=== PATIENT | male | born 1980 | race African-American/Black ===

== ENCOUNTER 2016-07-13 02:20 | Emergency (ER) | payer OTHER ==
[~2016-07-13] VITALS: Ht 185.4 cm; Wt 73.8 kg
[~2016-07-13 02:20] MED LIST: AFRIN,GENASAL D15 ML BOTH NARES; AUGMENTIN875 MG PO; HYCODAN SYRUP480 ML PO; LISINOPRIL10 MG PO; NOHOMEMEDS; PEPCID20 MG PO; PRILOSEC40 MG PO; TRAMADOL HCL50 MG PO; VIBRAMYCIN100 MG PO; ZANTAC150 MG PO; ZOFRAN ODT4 MG PO; no home med
[2016-07-13] MEDS ORDERED: PEN-VEE K,VEET500 MG PO (05:45)
[2016-07-13] MEDS ORDERED: MOTRIN600 MG PO (05:45)
[2016-07-13] MEDS ORDERED: PERCOCET 5/31 TABLET PO (05:45)
[2016-07-13 06:22] VITALS: BP 155/112
== END 2016-07-13 06:26 | disposition home or self-care (01) ==
LOC: EME 02:20
DX: K08.89 Other specified disorders of teeth and supporting structures (principal); I10 Essential (primary) hypertension; T46.5X6A Underdosing of other antihypertensive drugs, initial encounter; Z91.128 Patient's intentional underdosing of medication regimen for other reason; F17.200 Nicotine dependence, unspecified, uncomplicated
CPT/HCPCS: 99281; 99284

== ENCOUNTER 2016-11-03 21:14 | Emergency (ER) | payer OTHER ==
[~2016-11-03] VITALS: Ht 185.4 cm; Wt 66.3 kg
[~2016-11-03 21:14] MED LIST changes: +MOTRIN600 MG PO; +PEN-VEE K,VEET500 MG PO; +PERCOCET 5/31 TABLET PO
[2016-11-03 21:20] VITALS: BP 179/123
[2016-11-03] MEDS ORDERED: LISINOPRIL10 MG PO (23:21)
== END 2016-11-03 23:43 | disposition home or self-care (01) ==
LOC: EME 21:14
DX: I10 Essential (primary) hypertension (principal); Z91.14 Patient's other noncompliance with medication regimen
CPT/HCPCS: 99281; 99284

== ENCOUNTER 2016-11-26 15:06 | Emergency (ER) | payer OTHER ==
[~2016-11-26] VITALS: Ht 185.4 cm; Wt 693.7 kg
[2016-11-26 15:50] VITALS: BP 127/103
[2016-11-27 13:57] LABS: CHLAMYDIA TRACHOMATIS POSITIVE; NEISSERIA GONORRHOEAE POSITIVE
== END 2016-11-26 17:58 | disposition home or self-care (01) ==
LOC: EME 15:06
PROVIDERS: Nurse Practitioner Family
DX: A59.9 Trichomoniasis, unspecified (principal); A54.9 Gonococcal infection, unspecified; J02.9 Acute pharyngitis, unspecified; I10 Essential (primary) hypertension
CPT/HCPCS: 87491; 87591; 99281; 99284; J0696

== ENCOUNTER 2017-07-04 18:49 | Inpatient (IN) | payer OTHER ==
[~2017-07-04] VITALS: Ht 185.4 cm; Wt 72.9 kg
[2017-07-04 19:28] LABS: HEMATOCRIT 42.1 % (38.0-50.0); HEMOGLOBIN 14.2 G/DL (12.5-16.6); MCH 28.6 PG (29.0-34.0); MCHC 33.7 G/DL (30.0-36.0); MCV 84.7 FL (86-99); RBC DIS.WIDTH-CV 13.9 % (11.8-14.6); RED BLOOD COUNT 4.97 M/uL (4.00-5.50); WHITE BLOOD COUNT 24.2 K/uL (4.1-10.2)
[2017-07-04 19:44] LABS: CHLORIDE 100 mEq/L (99-109); POTASSIUM 3.7 mEq/L (3.7-5.4); SODIUM 137 mEq/L (136-147)
[2017-07-04 19:45] LABS: GLUCOSE 96 mg/dL (70-99)
[2017-07-04 19:49] LABS: CREATININE 1.3 mg/dL (0.6-1.3); GFR ESTIMATE (CALCULATED) > 59 mL/min/ (58.99-99999)
[2017-07-04 19:50] LABS: UREA NITROGEN (BUN) 19 mg/dL (9-23)
[2017-07-04 19:52] LABS: TROP-I INTERPRETATION NEGATIVE; TROPONIN-I < 0.01 ng/mL (0.0-0.30)
[2017-07-04 20:33] LABS: PLATELET CLUMPS PRESENT - PLATELET COUNT APPEARS ADQ.; PLATELET COUNT UNABLE TO REPORT K/uL (156-360)
[2017-07-04] MEDS ORDERED: ADVIL,NUPRIN,M200 MG PO (21:07)
[2017-07-04 22:20] LABS: SOURCE URINE
[2017-07-04 22:26] LABS: APPEARANCE CLEAR ((CLEAR)); BILIRUBIN NEGATIVE; BLOOD NEGATIVE; COLOR YELLOW ((YELLOW)); GLUCOSE (STRIP) NEGATIVE; KETONES NEGATIVE; LEUKOCYTES TRACE; NITRITE NEGATIVE; PROTEIN (STRIP) 30; SPECIFIC GRAVITY 1.025 (1.000-1.030)
[2017-07-04 22:37] LABS: BACTERIA NONE SEEN /HPF; EPITHELIAL CELLS RARE /HPF; MUCUS TRACE /LPF; RED BLOOD CELLS 0-5 /HPF (0-5); UCUL ADDED? YES
[2017-07-04 22:48] LABS: AMPHETAMINE NEGATIVE (500 ng/mL); BARBITURATES NEGATIVE (200 ng/mL); BENZODIAZEPINES NEGATIVE (150 ng/mL); BUPRENORPHINE NEGATIVE (10 ng/mL); COCAINE PRESUMPTIVE POSITIVE (150 ng/mL); METHADONE NEGATIVE (200 ng/mL); METHAMPHETAMINE NEGATIVE (500 ng/mL); OPIATES (MORPHINE) NEGATIVE (100 ng/mL); OXYCODONE NEGATIVE (100 ng/mL); PHENCYCLIDINE PRESUMPTIVE POSITIVE (25 ng/mL); PROPOXYPHENE NEGATIVE (300 ng/mL); THC CANNABINOIDS PRESUMPTIVE POSITIVE (50 ng/mL); TRICYCLIC ANTIDEPRESSANTS NEGATIVE (300 ng/mL)
[2017-07-05 01:37] VITALS: BP 122/76
[2017-07-05 04:33] VITALS: BP 122/74
[2017-07-05 05:50] LABS: BASOPHIL (%) 0.1 % (0-1); EOSINOPHIL (%) 0.3 % (0-5); HEMATOCRIT 38.3 % (38.0-50.0); HEMOGLOBIN 12.4 G/DL (12.5-16.6); IMMATURE GRANULOCYTE (%) 0.6 % (0.0-0.7); LYMPHOCYTE (%) 12.1 % (15-42); LYMPHOCYTE COUNT 1.9 K/uL (1.0-2.8); MCH 27.7 PG (29.0-34.0); MCHC 32.4 G/DL (30.0-36.0); MCV 85.7 FL (86-99); MONOCYTE (%) 6.9 % (3-12); MONOCYTE COUNT 1.1 K/uL (0-0.8); NEUTROPHIL COUNT 12.6 K/uL (1.8-6.4); RBC DIS.WIDTH-SD 43.5 % (39-53); RED BLOOD COUNT 4.47 M/uL (4.00-5.50); WHITE BLOOD COUNT 15.7 K/uL (4.1-10.2)
[2017-07-05 05:51] LABS: PLATELET COUNT 175 K/uL (156-360)
[2017-07-05 07:45] VITALS: BP 142/70
[2017-07-05 16:02] VITALS: BP 149/68
[2017-07-05 21:16] VITALS: BP 160/84
[2017-07-06 00:32] VITALS: BP 165/88
[2017-07-06 04:32] VITALS: BP 158/86
[2017-07-06 05:59] LABS: HEMOGLOBIN 12.3 G/DL (12.5-16.6); MCH 28.3 PG (29.0-34.0); MCHC 33.2 G/DL (30.0-36.0); MCV 85.3 FL (86-99); PLATELET COUNT 158 K/uL (156-360); RBC DIS.WIDTH-CV 13.9 % (11.8-14.6); RBC DIS.WIDTH-SD 43.6 % (39-53); RED BLOOD COUNT 4.34 M/uL (4.00-5.50); WHITE BLOOD COUNT 6.5 K/uL (4.1-10.2)
[2017-07-06 06:27] LABS: CHLORIDE 108 MEQ/L (99-109); CREATININE 0.9 MG/DL (0.6-1.3); GFR ESTIMATE (CALCULATED) > 59 mL/min/ (58.99-99999); GLUCOSE 89 mg/dL (70-99); POTASSIUM 3.7 MEQ/L (3.7-5.4); SODIUM 139 MEQ/L (136-147); UREA NITROGEN (BUN) 11 mg/dL (9-23)
[2017-07-06 06:43] LABS: VANCOMYCIN, TROUGH 8.9 MCG/ML (10-20)
[2017-07-06 07:58] VITALS: BP 150/90
[2017-07-06] MEDS ORDERED: CIPRO500 MG PO (10:42)
[2017-07-06] MEDS ORDERED: BACTRIM,SEPT1 TABLET PO (10:42)
[2017-07-06] MEDS ORDERED: HYDROCODON-ACE1 EAC7 PO (10:43)
[2017-07-07 13:02] LABS: CHLAMYDIA TRACHOMATIS NEGATIVE; NEISSERIA GONORRHOEAE NEGATIVE
== END 2017-07-06 11:51 | disposition home or self-care (01) | DRG 872 ==
LOC: EME 18:49 → EDOF 21:37 → ENRESERV 21:42 → 3EAST 07-05 01:10
PROVIDERS: Family Medicine; Physician Assistant Medical
DX: A41.9 Sepsis, unspecified organism (principal); L03.114 Cellulitis of left upper limb; S61.432A Puncture wound without foreign body of left hand, initial encounter; W01.119A Fall on same level from slipping, tripping and stumbling with subsequent striking against unspecified sharp object, initial encounter; F12.10 Cannabis abuse, uncomplicated; F14.90 Cocaine use, unspecified, uncomplicated; F17.210 Nicotine dependence, cigarettes, uncomplicated; I10 Essential (primary) hypertension; W26.8XXA Contact with other sharp object(s), not elsewhere classified, initial encounter; Y92.039 Unspecified place in apartment as the place of occurrence of the external cause
CPT/HCPCS: 71046; 73130; 80048; 80202; 81003; 83605; 84484; 84999; 85025; 85027; 87040; 87086; 87491; 87591; 93005; 99281; 99285; J1885; J2543; J3010; J3370; J7030

== ENCOUNTER 2017-07-28 10:41 | Emergency (ER) | payer OTHER ==
[~2017-07-28] VITALS: Ht 185.4 cm; Wt 71.8 kg
[~2017-07-28 10:41] MED LIST changes: +ADVIL,NUPRIN,M200 MG PO; +BACTRIM,SEPT1 TABLET PO; +CIPRO500 MG PO; +HYDROCODON-ACE1 EAC7 PO
[2017-07-28] MEDS ORDERED: NAPROXEN500 MG PO (13:08)
[2017-07-28] MEDS ORDERED: FLEXERIL10 MG PO (13:09)
[2017-07-28 13:33] VITALS: BP 146/86
== END 2017-07-28 13:34 | disposition home or self-care (01) ==
LOC: EME 10:41
DX: M54.5 Low back pain (principal); V49.40XA Driver injured in collision with unspecified motor vehicles in traffic accident, initial encounter; Y92.410 Unspecified street and highway as the place of occurrence of the external cause; I10 Essential (primary) hypertension; F17.200 Nicotine dependence, unspecified, uncomplicated
CPT/HCPCS: 99281; 99283